=== PATIENT | female | born 1980 | race Caucasian/White ===

== ENCOUNTER 2017-10-14 18:05 | Emergency (ER) | payer OTHER ==
[2017-10-14 19:40] LABS: Urine Blood 2+ (NEG); Urine Glucose NEGATIVE (NEG); Urine Protein 1+ (NEG); Urine Specific Gravity 1.025 (1.005-1.030); Urine pH 5.5 (5.0-7.0)
--- NOTE | 2017-10-14 20:26 | RAD REPORT ---
EXAM DESCRIPTION: Saúl Friedman (2 Views)10/14/2017 7:50 pm CLINICAL HISTORY: Cough COMPARISON: 2016 FINDINGS: The lungs appear clear of acute infiltrate. The heart is borderline enlarged IMPRESSION: No acute abnormalities displayed
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
[2017-10-14 21:36] VITALS: BP 136/90; TEMP 98.4; O2SAT 97
== END 2017-10-14 20:57 | disposition home or self-care (01) ==
LOC: ER 18:05
DX: T75.1XXA Unspecified effects of drowning and nonfatal submersion, initial encounter (principal); Z88.0 Allergy status to penicillin
CPT/HCPCS: 71046; 81003; 81025; 99283

== ENCOUNTER 2018-05-01 08:11 | Emergency (ER) | payer OTHER ==
[2018-05-01 09:59] LABS: Urine Blood 1+ (NEG); Urine Glucose NEGATIVE (NEG); Urine Protein NEGATIVE (NEG); Urine pH 7.5 (5.0-7.0)
--- NOTE | 2018-05-01 10:38 | RAD REPORT ---
EXAM DESCRIPTION: US - Transvaginal Study Probe - 05/01/2018 10:05 am CLINICAL HISTORY: r/o PID;Abd pain Pelvic pain. COMPARISON: No comparisons FINDINGS: The uterus is normal in size, shape and echotexture. The uterus measures 8.4 x 4.8 x 4.2 c m The endometrium contains an IUD in expected location. Neither ovary is well seen due to prominent bowel gas. IMPRESSION: IUD is in expected location in the endometrial canal.Neither ovary well seen due to michael l gas shadowing.
--- NOTE | 2018-05-01 10:50 | RAD REPORT ---
EXAM DESCRIPTION: CTAbdomen Pelvis W Contrast - 05/01/2018 10:39 am CLINICAL HISTORY: Abdominal pain. iv only;Abd pain COMPARISON: No comparisons TECHNIQUE: Biphasic CT imaging of the abdomen and pelvis was performed with 100 ml non-ionic IV cont rast. All CT scans are performed using dose optimization technique as appropriate and may include automated exposure control or mA/KV adjustment according to patient size. FINDINGS: The lung bases are clear. The liver, spleen, pancreas, adrenal glands and kidneys are within normal limits. No bowel obstruction, free air, free fluid or abscess. The appendix is not identified as a discrete structure, however, no secondary findings of appendicitis are identified. No evidence of significan t lymphadenopathy. No suspicious bony findings. IUD is present within the endometrial canal. IMPRESSION: No acute intra-abdominal or pelvic finding.
[2018-05-01 10:55] LABS: Absolute Lymphocytes (CBC) 1.7 K/uL (0.7-4.9); Absolute Monocytes 0.4 K/uL (0.1-1.3); Absolute Neutrophil 5.7 K/uL (1.8-8.0); Eosinophils % 0.4 % (0-4.4); Hematocrit 39.2 % (36.0-45.0); Lymphocytes % 21.5 % (15.3-44.8); MCH 23.7 pg (27.0-35.0); MCV 72.1 fL (80-100); MPV 9.1 fL (7.6-11.3); Monocytes % 5.5 % (3.3-12.3); RBC Red Blood Cell Count 5.44 M/uL (3.86-4.86)
[2018-05-01 11:10] LABS: BUN Blood Urea Nitrogen 11 mg/dL (7-18); Bicarbonate 26 mmol/L (21-32); Glucose Level 102 mg/dL (74-106); Sodium Level 138 mmol/L (136-145)
--- NOTE | 2018-05-01 11:40 | ER ---
Nurse's Notes [facility] Name: Emily Subramanian Age: 38 yrs Sex: Female : 1980 Arrival Date: 05/01/2018 Time: 08:16 Bed 17 Private MD: Heri Fonseca R Diagnosis: Female pelvic inflammatory disease, unspecified Presentation: 05/01 08:21 Presenting complaint: Patient states: Constant Pelvic pressure, swelling, urinary jl7 frequency, strong vaginal odor, and intermittent burning x 1 week, prescribed Cipro and Flagyl 4 days ago, no relief in symptoms. Doctor said I may need a pelvic ultrasound to see what's going on. Transition of care: patient was not received from another setting of care. Onset of symptoms was April 24, 2018. Risk Assessment: Do you want to hurt yourself or someone else? Patient reports no desire to harm self or others. Initial Sepsis Screen: Does the patient meet any 2 criteria? No. Patient's initial sepsis screen is negative. Does the patient have a suspected source of infection? No. Patient's initial sepsis screen is negative. Care prior to arrival: None. 08:21 Method Of Arrival: Ambulatory jl7 08:21 Acuity: LESLI 3 jl7 Triage Assessment: 08:25 General: Appears in no apparent distress. uncomfortable, Behavior is calm, cooperative, jl7 appropriate for age. Pain: Complains of pain in pelvis Pain currently is 6 out of 10 on a pain scale. GI: No signs and/or symptoms were reported involving the gastrointestinal system. 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 - Social history:: Smoking status: Patient/guardian denies using tobacco. - Ebola Screening: : No symptoms or risks identified at this time. Screenin:21 Abuse screen: Denies threats or abuse. Denies injuries from another. Nutritional hj screening: No deficits noted. Tuberculosis screening: No symptoms or risk factors identified. Fall Risk None identified. Assessment: 08:21 GI: Bowel sounds present X 4 quads. Abd is soft and non tender. hj 08:21 General: Appears in no apparent distress. uncomfortable, Behavior is calm, cooperative, hj appropriate for age. Pain: Complains of pain in pelvis. Neuro: Level of Consciousness is awake, alert, obeys commands, Oriented to person, place, time, situation, Appropriate for age. Cardiovascular: Capillary refill < 3 seconds Patient's skin is warm and dry. Respiratory: Airway is patent Respiratory effort is even, unlabored, Respiratory pattern is regular, symmetrical. : No signs and/or symptoms were reported regarding the genitourinary system. EENT: No signs and/or symptoms were reported regarding the EENT system. Derm: No signs and/or symptoms reported regarding the dermatologic system. Musculoskeletal: No signs and/or symptoms reported regarding the musculoskeletal system. 09:19 Reassessment: provider in room;'. hj 11:35 Reassessment: Patient appears in no apparent distress at this time. Patient and/or iw family updated on plan of care and expected duration. Pain level reassessed. Patient is alert, oriented x 3, equal unlabored respirations, skin warm/dry/pink. Patient states feeling better. Vital Signs: 08:25 BP 136 / 94; Pulse 85; Resp 18 S; Temp 98.4(O); Pulse Ox 99% on R/A; Weight 140.61 kg jl7 (R); Height 5 ft. 6 in. (167.64 cm) (R); Pain 6/10; 10:29 BP 135 / 90; Pulse 84; Resp 18; Pulse Ox 100% on R/A; hj 08:25 Body Mass Index 50.03 (140.61 kg, 167.64 cm) jl7 ED Course: 08:16 Patient arrived in ED. mr 08:17 Heri Fonseca MD is Private Physician. mr 08:21 Patient has correct armband on for positive identification. Placed in gown. Bed in low hj position. Call light in reach. Side rails up X 1. 08:25 Triage completed. jl7 08:25 Arm band placed on right wrist. jl7 08:28 Davy Hayes, NICHELLE is Primary Nurse. hj 08:39 Urine collected: clean catch specimen, cloudy, adrian colored. jb1 08:47 Modesto Garnett PA is PHCP. jr8 08:47 Lyle Cali MD is Attending Physician. jr8 09:17 Urine Drug Screen Sent. hj 09:33 Patient taken to ultrasound. via wheelchair. aa4 10:20 Initial lab(s) drawn, by me, sent to lab. Inserted saline lock: 22 gauge in right hj antecubital area, using aseptic technique. Blood collected. 10:21 Radiology exam delayed due to lab results not completed at this time. (BUN/Creatinine). 2 10:29 Basic Metabolic Panel Sent. hj 10:29 CBC with Diff Sent. hj 11:35 No provider procedures requiring assistance completed. IV discontinued, intact, iw bleeding controlled, No redness/swelling at site. Pressure dressing applied. Administered Medications: No medications were administered Outcome: 11:22 Discharge ordered by . jr8 11:35 Discharged to home ambulatory. iw 11:35 Condition: good 11:35 Discharge instructions given to patient, Instructed on discharge instructions, follow up and referral plans. medication usage, Demonstrated understanding of instructions, follow-up care, medications, Prescriptions given X 1. 11:36 Patient left the ED. iw Signatures: Ferdinand Schuster jb1 Farida Carbajal mr Verenice Kong, RN RN Radha Jon aa4 Modesto Garnett PA PA jr8 Davy Hayes, RN RN Amirah Ribeiro RN RN jl7 Vidhya Anaya 2 Corrections: (The following items were deleted from the chart) 08:26 08:21 Presenting complaint: Patient states: Pelvic pressure, swelling, urinary jl7 frequency, strong vaginal odor x 1 week, prescribed Cipro and Flagyl 4 days ago, no relief in symptoms. Doctor said I may need a pelvic ultrasound to see what's going on. jl7
--- NOTE | 2018-05-01 11:41 | EDPHYS ---
Physician Documentation [facility] Name: Emily Subramanian Age: 38 yrs Sex: Female : 1980 Arrival Date: 05/01/2018 Time: 08:16 Bed 17 Private MD: Heri Fonseca R ED Physician Lyle Cali HPI: 05/01 10:45 This 38 yrs old Female presents to ER via Ambulatory with complaints of jr8 Urinary Problem, Abdominal Swelling, Vaginal Discharge. 10:45 The patient presents with pelvic pain, vaginal discharge. Onset: The symptoms/episode jr8 began/occurred gradually, 1 week(s) ago. Modifying factors: The symptoms are alleviated by nothing, the symptoms are aggravated by nothing. Associated signs and symptoms: The patient has no apparent associated signs or symptoms. Severity of symptoms: At their worst the symptoms were mild, in the emergency department the symptoms are unchanged. The patient has experienced a previous episode. The patient has been recently seen by a physician:. Patient stated that she has had similar pain in past and ended up being Bacterial vaginosis that was treated and cleared with Flagyl. Similar symptoms now that they prescribed cipro and flagyl but not helping. Denies intercourse since this past June . [facility]: 08:25 LMP 04/26/2018 jl7 Historical: - Allergies: 08:25 PENICILLINS; jl7 - Home Meds: 08:25 Dexilant oral oral [Active]; jl7 - PMHx: 08:25 Asthma; silent reflux; jl7 - PSHx: 08:25 ; jl7 - Immunization history:: Adult Immunizations up to date. - Social history:: Smoking status: Patient/guardian denies using tobacco. - Ebola Screening: : No symptoms or risks identified at this time. ROS: 10:45 Eyes: Negative for injury, pain, redness, and discharge, ENT: Negative for injury, jr8 pain, and discharge, Neck: Negative for injury, pain, and swelling, Cardiovascular: Negative for chest pain, palpitations, and edema, Respiratory: Negative for shortness of breath, cough, wheezing, and pleuritic chest pain, Back: Negative for injury and pain, MS/Extremity: Negative for injury and deformity, Skin: Negative for injury, rash, and discoloration, Neuro: Negative for headache, weakness, numbness, tingling, and seizure. 10:45 Abdomen/GI: Positive for abdominal pain, Negative for nausea, vomiting, and diarrhea, abdominal cramps, abdominal distension, anorexia, dysphagia, hematemesis, black/tarry stool, rectal pain, rectal bleeding, bowel incontinence. 10:45 : Positive for pelvic pain, vaginal discharge. Exam: 10:45 Eyes: Pupils equal round and reactive to light, extra-ocular motions intact. Lids and jr8 lashes normal. Conjunctiva and sclera are non-icteric and not injected. Cornea within normal limits. Periorbital areas with no swelling, redness, or edema. ENT: Nares patent. No nasal discharge, no septal abnormalities noted. Tympanic membranes are normal and external auditory canals are clear. Oropharynx with no redness, swelling, or masses, exudates, or evidence of obstruction, uvula midline. Mucous membranes moist. Neck: Trachea midline, no thyromegaly or masses palpated, and no cervical lymphadenopathy. Supple, full range of motion without nuchal rigidity, or vertebral point tenderness. No Meningismus. Cardiovascular: Regular rate and rhythm with a normal S1 and S2. No gallops, murmurs, or rubs. Normal PMI, no JVD. No pulse deficits. Respiratory: Lungs have equal breath sounds bilaterally, clear to auscultation and percussion. No rales, rhonchi or wheezes noted. No increased work of breathing, no retractions or nasal flaring. Back: No spinal tenderness. No costovertebral tenderness. Full range of motion. Skin: Warm, dry with normal turgor. Normal color with no rashes, no lesions, and no evidence of cellulitis. MS/ Extremity: Pulses equal, no cyanosis. Neurovascular intact. Full, normal range of motion. Neuro: Awake and alert, GCS 15, oriented to person, place, time, and situation. Cranial nerves II-XII grossly intact. Motor strength 5/5 in all extremities. Sensory grossly intact. Cerebellar exam normal. Normal gait. 10:45 Abdomen/GI: Inspection: obese Bowel sounds: active, all quadrants, Palpation: soft, in all quadrants, mild abdominal tenderness, in the lower pelvic reigon, mass, is not appreciated, rebound tenderness, is not appreciated, voluntary guarding, is not appreciated, involuntary guarding, is not appreciated, no appreciated organomegaly, Indicators: McBurney's point is not tender, Marshall's sign is negative, Rovsing's sign is negative, Liver: tenderness, is not appreciated. Vital Signs: 08:25 BP 136 / 94; Pulse 85; Resp 18 S; Temp 98.4(O); Pulse Ox 99% on R/A; Weight 140.61 kg jl7 (R); Height 5 ft. 6 in. (167.64 cm) (R); Pain 6/10; 10:29 BP 135 / 90; Pulse 84; Resp 18; Pulse Ox 100% on R/A; hj 08:25 Body Mass Index 50.03 (140.61 kg, 167.64 cm) jl7 MDM: 08:47 Patient medically screened. jr8 10:51 Differential diagnosis: luli infection, cervicitis, endometriosis, malignancy, jr8 nonspecific abdominal pain, ovarian cyst, pelvic inflammatory disease, uterine fibroids, urinary tract infection, vaginosis. Data reviewed: vital signs, nurses notes, lab test result(s), radiologic studies, CT scan, ultrasound. Data interpreted: Pulse oximetry: on room air is 100 %. Interpretation: normal. Counseling: I had a detailed discussion with the patient and/or guardian regarding: the historical points, exam findings, and any diagnostic results supporting the discharge/admit diagnosis, lab results, radiology results, the need for outpatient follow up, an OB/Gyne specialist, to return to the emergency department if symptoms worsen or persist or if there are any questions or concerns that arise at home. ED course: Patient with signs and symptoms of PID. Similar to what she had in past. Will treat for PID as this is the most likely case. Has appointment with [facility]. . 05/01 09:00 Order name: Urine Drug Screen bd 05/01 09:59 Order name: Urine Dipstick-Ancillary; Complete Time: 10:07 EDIL 05/01 09:59 Order name: Urine --Ancillary; Complete Time: 10:07 EDIL 05/01 10:20 Order name: CBC with Diff [facility] 05/01 10:20 Order name: Basic Metabolic Panel [facility] 05/01 11:00 Order name: CBC with Automated Diff; Complete Time: 11:02 EDIL 05/01 09:21 Order name: Urine Dipstick-Ancillary (obtain specimen); Complete Time: 09:22 [facility] 05/01 09:21 Order name: US Transvaginal Study (Probe) jr8 05/01 10:20 Order name: IV; Complete Time: 10:29 jr8 05/01 10:20 Order name: CT Abd/Pelvis - W/Contrast jr8 05/01 10:39 Order name: US; Complete Time: 10:42 EDMS 05/01 10:50 Order name: CT; Complete Time: 10:51 EDMS 05/01 11:11 Order name: Basic Metabolic Panel; Complete Time: 11:20 EDMS Administered Medications: No medications were administered Disposition: 15:28 Co-signature as Attending Physician, Lyle Cali MD I agree with the assessment and bill plan of care. Disposition: 05/01/18 11:22 Discharged to Home. Impression: Female pelvic inflammatory disease, unspecified. - Condition is Stable. - Discharge Instructions: Pelvic Inflammatory Disease. - Prescriptions for Doxycycline Monohydrate 100 mg Oral Tablet - take 1 tablet by ORAL route every 12 hours for 14 days; 28 tablet. - Medication Reconciliation Form, Thank You Letter, Antibiotic Education, Prescription Opioid Use form. - Follow up: Private Physician; When: 1 week; Reason: Recheck today's complaints, Continuance of care, Re-evaluation by your physician. - Problem is new. - Symptoms have improved. Signatures: Dispatcher [employer] Lyle Ludwig MD MD cha Williams, Irene, RN RN Modesto Morrow PA PA jr8 Amirah Ribeiro RN RN jl7 Corrections: (The following items were deleted from the chart) 11:36 11:22 05/01/2018 11:22 Discharged to Home. Impression: Female pelvic inflammatory iw disease, unspecified. Condition is Stable. Forms are Medication Reconciliation Form, Thank You Letter, Antibiotic Education, Prescription Opioid Use. Follow up: Private Physician; When: 1 week; Reason: Recheck today's complaints, Continuance of care, Re-evaluation by your physician. Problem is new. Symptoms have improved. jr8
[2018-05-01 11:48] VITALS: TEMP 98.4
[2018-05-01 11:49] VITALS: BP 135/90; O2SAT 100
== END 2018-05-01 11:36 | disposition home or self-care (01) ==
LOC: ER 08:11
DX: N73.9 Female pelvic inflammatory disease, unspecified (principal); J45.909 Unspecified asthma, uncomplicated; Z88.0 Allergy status to penicillin
CPT/HCPCS: 36415; 74177; 76830; 80048; 81003; 81025; 85025; Q9967